=== PATIENT | male | born 1975 | race Two or more races ===

== ENCOUNTER 2024-08-10 06:30 | Day surgery (SDC) | payer MEDICAID, SELFPAY ==
--- NOTE | 2024-08-07 08:25 | EKG_ITS ---
[facility] Test Date: 2024-08-07 Pat Name: JESSICA MORRIS Department: Room: - Gender: Male Food Consultant: [facility] : 1975 Requested By: Derick Irving Order Number: [id number] Reading MD: Derick Irving Measurements Intervals [place] Rate: 74 P: 32 MA: 182 QRS: 34 QRSD: 109 T: 31 QT: 360 QTc: 401 Interpretive Statements SINUS RHYTHM No previous ECG available for comparison /store/S0/[id number]/[id number].pdf
[2024-08-07 09:32] LABS: Collection Type, Urine Clean Catch
[2024-08-07 10:49] LABS: Basophils % (Auto) 0 % (0-2.5); Eosinophils # (Auto) 0.1 Thou/mm3 (0.0-0.5); Eosinophils % (Auto) 1 % (0-10); Hematocrit 45.4 % (41.0-53.0); Hemoglobin 15.3 g/dL (13.5-16.0); Immature Granulocytes % (Auto) 0 % (0-0); Immature Granulocytes Auto 0.03 Thou/mm3 (0.00-0.00); Lymphocytes # (Auto) 2.7 Thou/mm3 (1.0-4.8); Lymphocytes % (Auto) 35 % (10-50); Mean Corpuscular HGB Conc 33.7 g/dl (31.0-37.0); Mean Corpuscular Hemoglobin 29.5 pg (25.0-35.0); Mean Corpuscular Volume 88 fL (80-100); Monocytes # (Auto) 0.6 Thou/mm3 (0.0-0.8); Monocytes % (Auto) 8 % (0-12); Neutrophils # (Auto) 4.1 Thou/mm3 (1.8-7.7); Neutrophils % (Auto) 54 % (37-80); Nucleated Red Blood Cell % 0 /100 WBC (0); Platelet Count 222 Thou/mm3 (140-440); RDW Standard Deviation 42.9 fL (35.1-43.9); Red Blood Count 5.18 Miln/mm3 (4.50-5.90); White Blood Count 7.6 Thou/mm3 (3.8-10.6)
[2024-08-07 10:55] LABS: Partial Thromboplastin Time 26.5 Seconds (22.0-36.0)
[2024-08-07 11:00] LABS: Alanine Aminotransferase 32 U/L (10-49); Albumin, Serum 4.5 gm/dL (3.5-5.0); Albumin/Globulin Ratio 1.9 (1.2-2.2); Alkaline Phosphatase 69 U/L (46-116); Anion Gap 8 (7-16); Aspartate Amino Transferase 27 U/L (0-34); BUN/Creatinine Ratio 11 Ratio (12-20); Bilirubin,Total 1.3 mg/dL (0.3-1.2); Blood Urea Nitrogen 10 mg/dL (9-23); Calcium 9.2 mg/dL (8.3-10.6); Calcium (Corrected) 9.2 mg/dL (8.5-10.1); Carbon Dioxide 30.8 mMol/L (20.0-31.0); Chloride 104 mMol/L (98-107); Creatinine (Component) 0.9 mg/dL (0.6-1.3); Globulin 2.4 gm/dL (2.3-3.5); Glucose 118 mg/dL (74-106); Osmolality,Calculated 284 (275-295); Potassium 4.5 mMol/L (3.4-5.1); Sodium 143 mMol/L (136-145); Total Protein 6.9 gm/dL (5.7-8.2); eGFR > 60 See Note
[2024-08-07 11:10] LABS: Bilirubin,Urine Negative (Negative); Blood,Urine Negative (Negative); Clarity,Urine Clear (Clear/Hazy); Color,Urine Lt-Yellow (Lt Yel-Yel); Glucose, Urine Negative (Negative); Ketones,Urine Negative (Negative); Leukocyte Esterase,Urine Negative (Negative); Nitrite,Urine Negative (Negative); PH,Urine 6.5 (5.0-7.0); Protein,Urine Negative (Neg - Trace); RBC,Urine 2 /hpf (0-3); Specific Gravity,Urine 1.021 (1.001-1.035); Squamous Epithelial Cell,Urine < 1 /hpf (0-5); Urobilinogen,Urine Negative mg/dL (0.0-1.0); WBC,Urine < 1 /hpf (0-5)
[2024-08-07 12:48] VITALS: BMI 41.8
[2024-08-10] VITALS (7 sets, daily range): BP systolic 104–138; BP diastolic 66–78; PULSE 68–89; RESP 12–19; TEMP 36.2–36.9; O2SAT 93–99; BMI 41.1
--- NOTE | 2024-08-10 07:34 | SUR.PREOP ---
Patient expressed gratitude for prayer before their procedure
--- NOTE | 2024-08-10 11:58 | ESOP_ITS ---
Date of Procedure 08/10/24 Pre Op Diagnosis Incarcerated recurrent umbilical hernia Post Op Diagnosis Same. Procedure Repair of incarcerated recurrent umbilical hernia 7 cm and partial omentectomy on 08/10/2024 Findings This patient had umbilical hernia repair done many years ago. The hernia came back and upon exploration he was found to have significant amount of scar tissue and an incarcerated umbilical hernia with omentum incarcerated in it. Required extended amount of dissection through the scar tissue in order to define the defect. Procedure Description Patient was examined in the preop area. Site and site were marked. Procedure was discussed with the patient in detail. The risk benefits alternatives were discussed with the patient and informed consent was obtained. The risks include bleeding infection recurrence of the hernia and anesthesia related risks. The patient was brought to the operating room and placed on the operating table in supine position. General anesthesia was administered in a satisfactory manner. IV antibiotics were given to the patient. Local anesthesia 0.25% Marcaine was used as an adjunct. Curvilinear vertical circumumbilical incision is made. This was deepened through the layers of skin subcutaneous tissue. The hernia sac was identified and was dissected around the umbilicus. There was significant amount of chronic collagen a scar tissue in this area. That required careful tedious dissection to identify the defect. Hernia sac was incised circumferentially, and the contents of the hernia sac were identified. There was omentum in the hernia sac, and this was adherent with the hernia sac and it is scarred down. Portion of the omentum was resected by suture ligation technique with resection of the scarred down omentum. Rest of the omentum was reduced. Hernia sac was excised as specimen. The fascia is cleaned and then the defect is defined. I examined the fascia from the peritoneal side and there are no adhesions of the bowel or omentum. The defect measured 7 cm. It came together nicely so I decided to repair that with interrupted 0 Ethibond [id number]-[id number] stitches. This repair was closed the defect longitudinally in the midline. Multiple abejbc-ik-lulrc stitches are taken to complete the repair. Hemostasis was achieved and the defect was checked again and there is no fascial defect anymore. The operative field is thoroughly irrigated with saline solution. The hernia sac toward the umbilical skin is trimmed. Umbilical skin is attached to the fascia with interrupted 3-0 Vicryl stitches so as to avoid floating umbilicus. After that subcutaneous tissue was approximated by 3-0 Vicryl and skin by four sal. Sterile dressing is applied. Abdominal binder was applied. Patient tolerated the procedure very well. Complications none. Anesthesia GETA Drains None. Implants None. Pathology / specimen Other (Hernia sac and omentum) Estimated Blood Loss 10 Condition Stable Disposition PACU Surgeon Derick Irving MD Surgical Staff Operation Date: 08/10/24 09:15 Case Staff Anesthesiologist: Pete Dorado staff nuclear medicine technologist with the student. Rosemarie RN computer engineering technician Josey ARMENDARIZ computer engineering technician
--- NOTE | 2024-08-10 12:00 | SUR.PHASEI ---
Pt. arrived to recovery via gurney with eyes closed, oral airway in place, unable to respond, VSS, with exception of 02 saturation at 86%, pt. receiving 10 liters 02 via oxymask, repositiioned pt. and prompted to wake pt. to remove airway and educate pt. to take deep breath and cough to promote 02 saturation. With intervention pt.'s 02 saturation increased to 94%. Lung sounds clear, equal expansion sean., dressing to medial abdomen, sal, telfa, 4x4, abd. pad, metaport tape and abdominal binder intact, no active bleeding noted. Report received from Dr. Dorado and Rosemarie ARMENDARIZ.
--- NOTE | 2024-08-10 12:30 | SUR.PHASEII ---
1230 Report received from Maia ARMENDARIZ
--- NOTE | 2024-08-10 12:30 | SUR.PHASEII ---
Gave report on pt. s/p surgery to Chio Clifton RN, pt. is AAOx3, no c/o pain or nausea at this time, VSS, dressing to abd. CDI. Pt. is sitting up tolerating oral fluids.
--- NOTE | 2024-08-10 12:58 | SUR.PHASEII ---
1258 Patient meets discharge criteria from recovery, awake and alert, breathing unlabored, vital signs stable, denies pain, dressing intact; no bleeding noted, drinking apple juice; denies nausea, assisted with dressing into his clothing by his , discharge instructions given to patient, his and son with the assistance of the telephone model maker plaster May ID#[id number], patients son signed discharge instructions. Patient given all his belongings prior to discharge, transported via wheelchair and left in a private vehicle.
== END 2024-08-10 12:58 | disposition home or self-care (01) ==
PROVIDERS: PCP Internal Medicine; Referring Provider Specialist; Visit Provider Specialist
PROC: (CPT 49616; principal; 2024-08-10 09:15)
DX: K42.0 Umbilical hernia with obstruction, without gangrene (principal); Z01.810 Encounter for preprocedural cardiovascular examination
CPT/HCPCS: 49616; 36415; 80053; 81001; 85025; 85730; 93005; A4217; A4649; J0131; J0690; J1100; J2250; J2405; J2704; J3010; J3490

== ENCOUNTER 2024-08-12 09:06 | Emergency (ER) | payer MEDICAID, SELFPAY ==
[2024-08-12 09:06] VITALS: BMI 40.8
--- NOTE | 2024-08-12 09:14 | EDNOTE_ITS ---
ED Abdominal Pain RME/HPI General Chief Complaint: Abdominal Pain Stated complaint: ABD PAIN S/P HERNIA REPAIR Time seen by provider: 08/12/24 09:12 Arrival date/time: 08/12/24 09:06 RME / HPI RME / HPI narrative: This section includes all my notes and documentations, including HPI, PE, and ED course.? Frantz Reyes MD HPI: 49 year old male presenting to the ED for evaluation of abdominal pain that has been gradually worsening since undergoing repair of an incarcerated recurrent umbilical hernia and partial omentectomy on 08/10/2024, performed by Dr. Irving. Pain described as an aching sensation, rating as moderate. Located diffusely but most pronounced in the periumbilical region. Accompanied by constipation, noting only a small hard bowel movement yesterday morning. Currently taking Quapaw for pain. Denies fevers, chills, chest pain, cough, shortness of breath, vomiting, or urinary symptoms. ROS: All negative except as documented in HPI. Physical Exam: General:? Alert and oriented.? No acute distress when remaining still. Eyes:? Conjunctivae and lids clear.?? ENT:? No nasal congestion.? Neck:? Supple.?? Heart:? RRR.? Lungs:? No respiratory distress.? Good air movement.? No rhonchi, wheezing, rales.?? Abdomen:? Soft, diffuse abdominal tenderness, difficult to localize. Decreased bowel sounds. No distension.? No rebound or guarding.?? Back:? No CVA tenderness.?? Skin:? Warm and dry.?? Neuro:? Alert and oriented X 3. I reviewed all diagnostic test results: My review of the CT abdomen/pelvis report is: No acute findings. Blood tests?are unremarkable. At this point, diagnoses include: Postoperative pain, constipation. Treatment here included: Zofran, Toradol, IV fluids, Dilaudid. Significant improvement noted. Recommended outpatient follow up. Based on my best medical judgment, made decision no further evaluation or treatment indicated at this time.? Patient understands and agrees to the discharge instructions customized and printed, see below. Discharge instructions from Dr. Reyes printed for you: ?After extensive evaluation, there is no emergency.? Such as infection/abscess from your surgery. -You have constipation. Quapaw causes constipation. ?Take Senokot S (not plain Senokot, OTC so prescription not needed), four pills, at bedtime as needed.? And milk of magnesia as prescribed. May take a few days but this will help clear out your bowels. ?To help current constipation and prevent future constipation, increase oral fluid because dehydration cause severe constipation.? Maintain clear urine.? If dark or yellow, increase oral fluid. ?And every day, increase fresh fruits and fresh vegetables and physical exercise. ?See your surgeon on 08/14/2024 for recheck and further care. Ask to review all test results and official radiology reports, to make sure you receive all necessary follow-ups and monitoring. ?Seek immediate medical care with worsening or with any concerns. Instrucciones de reinaldo del Dr. Reyes impresas para usted: ?Despu?s de deonna evaluaci?n exhaustiva, no se trata de ninguna emergencia. [place] deonna infecci?n o un absceso debido a la cirug?a. ?Tiene estre?imiento. Quapaw causa estre?imiento. ?[place] Senokot S (no Senokot simple, de venta mor, por lo que no necesita receta), cuatro pastillas, antes de acostarse, seg?n sea necesario. Y leche de magnesia seg?n lo prescrito. Puede tardar algunos d?as, bernabe esto le ayudar? a depurar. ?Para aliviar el estre?imiento actual y prevenirlo en el futuro, aumente la ingesta de l?quidos, ya que la deshidrataci?n puede causar estre?imiento grave. Mantenga la orina zach. Si es oscura o amarilla, aumente la ingesta de l?quidos. ?Y aumente el consumo diario de frutas y verduras frescas, y bernardino ejercicio f?sico. ?Consulte a pichardo cirujano el 14/08/2024 para deonna revisi?n y cuidados adicionales. Solicite la revisi?n de todos los resultados de las pruebas y los informes radiol?gicos oficiales para asegurarse de recibir todos los controles y monitoreos necesarios. ?Busque atenci?n m?dica inmediata si empeora o tiene alguna inquietud. Frantz Reyes MD Related Data Home Medications ?Medication ?Instructions ?Recorded ?Confirmed multivitamin (Daily Multi-Vitamin 1 tab PO QAM 5 08/10/24 tablet) Previous Rx's ?Medication ?Instructions ?Recorded hydrocodone 10 mg-acetaminophen 1 tab PO Q6H PRN pain #20 tabs 08/10/24 325 mg tablet magnesium hydroxide 2,400 mg/10 mL 30 ml PO QDAY PRN c onstipation #60 08/12/24 oral suspension (Milk Of Magnesia mL Concentrated) sennosides 8.6 mg-docusate sodium 4 tab-cap (4 x 8.6-5 0 mg) PO QDAY 08/12/24 50 mg tablet (Senokot-S) PRN constipation #20 tabs Allergies Allergy/AdvReac Type Severity Reaction Status Date / Time Penicillins Allergy Rash Verified 08/12/24 09:08 Review of Systems Review of Systems Systems Reviewed: All systems reviewed, normal except as documented Past Medical History Past Medical History GASTROINTESTINAL: Positive Gastrointestinal Disorders and Obesity Family History FAMILY HISTORY: Positive Family Cancer Social History SMOKING STATUS: Never smoker ED Exam Narrative Physical exam: As noted in HPI Course Quality Measures none Orders Category Date Time Status CT Screening NOW Care 08/12/24 09:16 Completed Saline [Insert IV] NOW Care 08/12/24 09:[address] abdomen pelvis w con Stat Exams 08/12/24 09:16 Completed Amylase Stat Lab 08/12/24 09:25 Completed Bilirubin,Direct Stat Lab 08/12/24 09:25 Completed Blood Culture (Lab) Stat Lab 08/12/24 09:36 Received CBC Stat Lab 08/12/24 09:25 Completed CMP [Comprehensive Metabolic Panel] Stat Lab 08/12/24 09:25 Completed CRP [C-Reactive Protein] Stat Lab 08/12/24 09:25 Completed ESR [Sed Rate (ESR)] Stat Lab 08/12/24 09:25 Completed Lactate (Lactic Acid) Stat Lab 08/12/24 09:25 Completed Lipase Stat Lab 08/12/24 09:25 Completed Magnesium Stat Lab 08/12/24 09:25 Completed PT [Prothrombin Time with INR] Stat Lab 08/12/24 09:25 Completed PTT [Partial Thromboplastin Time] Stat Lab 08/12/24 09:25 Completed Procalcitonin Stat Lab 08/12/24 09:25 Completed HYDROmorphone INJ [Dilaudid Inj] Med 08/12/24 09:15 Discontinued 1 mg IVP X1 ONE Ketorolac Inj [Toradol Inj] Med 08/12/24 09:15 Discontinued 30 mg IVP X1 ONE Ondansetron Inj [Zofran Inj] Med 08/12/24 09:15 Discontinued 4 mg IVP X1 ONE Sodium Chloride 0.9% 1000 ml [Ns] 1,000 ml Med 08/12/24 09:15 Discontinued IV 999 mls/hr Vital Signs Vital signs: Vital Signs Temperature 98.1 F 08/12/24 09:18 Pulse Rate 69 08/12/24 09:18 Respiratory Rate 19 08/12/24 09:18 Blood Pressure 148/98 H 08/12/24 09:18 Pulse Oximetry (%) 96 08/12/24 09:18 Oxygen Delivery Method Room Air 08/12/24 09:18 Pulse ox is 96% on room air which is adequate. Abdominal Pain MDM MDM Narrative MDM Narrative:: Yomaira Herron am scribing for and in the presence of Dr. Reyes. 49 year old male presenting to the ED for evaluation of abdominal pain that has been gradually worsening since undergoing repair of an incarcerated recurrent um bilical hernia and partial omentectomy on 08/10/2024, performed by Dr. Irving. Pain described as an aching sensation, rating as moderate. Located diffusely but most pronounced in the periumbilical region. Accompanied by constipation, noting only a small hard bowel movement yesterday morning. Currently taking Quapaw for pain. Denies fevers, chills, chest pain, cough, shortness of breath, vomiting, or urinary symptoms. Patient data External records reviewed:: [facility] previous records (I reviewed operative report from 08/10/2024 ) Clinical information provided by:: patient Social determinants that could affect healthcare access:: none Patient has the following chronic illnesses:: repair of an incarcerated recurrent umbilical hernia and partial omentectomy on 08/10/2024, performed by Dr. Irving How is presenting disease/condition affected by chronic disease/condition?: exacerbated by Evaluation data The following diagnostics were reviewed and interpreted by me:: lab results and radiology exam(s) Lab and/or radiology exams considered but not ordered:: None Interpretation Summary: I reviewed all diagnostic test results: My review of the CT abdomen/pelvis report is: No umbilical abscess or definite hematoma. Blood tests?are unremarkable. Medications / Prescriptions Medications or Prescriptions considered but not ordered:: None Medication administrations:: Medication Administration History Discontinued Medications Hydromorphone HCl (Hydromorphone Inj 2 Mg/Ml Vial) 1 mg IVP X1 ONE Stop: 08/12/24 09:16 Last Admin: 08/12/24 09:29 Dose: 1 mg Documented By: TRACEY Sodium Chloride (Ns) 1,000 mls @ 999 mls/hr IV .Q1H1M ONE Stop: 08/12/24 10:15 Last Infusion: 08/12/24 10:34 Dose: Infused Documented By: Admin: 08/12/24 09:26 Dose: 999 mls/hr Documented By: VG Ketorolac Tromethamine (Ketorolac Inj 30 Mg/Ml Vial) 30 mg IVP X1 ONE Stop: 08/12/24 09:16 Last Admin: 08/12/24 09:28 Dose: 30 mg Documented By: VG Ondansetron HCl (Ondansetron Inj 2 Mg/Ml Inj 2 Ml) 4 mg IVP X1 ONE; Protocol Stop: 08/12/24 09:16 Last Admin: 08/12/24 09:27 Dose: 4 mg Documented By: VG IV fluid and Toradol and Dilaudid and Zofran. Consultations Consultation(s) initiated? (list below): No Diagnosis Differential diagnosis abdominal pain: abdominal pain, acute appendicitis, calculus of kidney, constipation, diverticulitis, pancreatitis, small bowel obstruction and other (post operative pain) Most likely diagnosis given after review of the tests above:: Postoperative pain and constipation. Admission Indicated Admission indicated?: not indicated Explain why admission is indicated or not indicated:: With significant improvement, there was no indication for admission. Admission Request Was there a request for admission?: No Disposition Plan Disposition Plan: Discharge Discharge Attestation Discharge Attestation: The patient and all family members were given an opportunity to ask questions and understood the discharge instructions. Discharge instructions specifically effects, indications for sooner follow up or return to the emergency department, and the expected course of current diagnosis. Patient condition: Stable Discharge Plan Plan Patient Disposition: HOME (Self Care) Prescriptions/Referrals Prescriptions/Med Rec: New magnesium hydroxide [Milk Of Magnesia Concentrated] 2,400 mg/10 mL suspension 30 ml PO QDAY PRN (Reason: constipation) Qty: 60 0RF sennosides-docusate sodium [Senokot-S] 8.6-50 mg tablet 4 tab-cap PO QDAY PRN (Reason: constipation) Qty: 20 0RF No Action multivitamin [Daily Multi-Vitamin] Tablet 1 tab PO QAM hydrocodone-acetaminophen 10-325 mg tablet 1 tab PO Q6H MDD 4 PRN (Reason: pain) Qty: 20 0RF Referrals: Jermain Key MD [Primary Care Provider] - In 1 week Problem List Clinical Impression: Postoperative pain, Constipation Patient/Caregiver Discharge Instructions Discharge Activity: activity as tolerated Education Materials: ED Constipation (Adult) Additional Instructions: Discharge instructions from Dr. Reyes printed for you: ?After extensive evaluation, there is no emergency.? Such as infection/abscess from your surgery. -You have constipation. Quapaw causes constipation. ?Take Senokot S (not plain Senokot, OTC so prescription not needed), four pills, at bedtime as needed.? And milk of magnesia as prescribed. May take a few days but this will help clear out your bowels. ?To help current constipation and prevent future constipation, increase oral fluid because dehydration cause severe constipation.? Maintain clear urine.? If dark or yellow, increase oral fluid. ?And every day, increase fresh fruits and fresh vegetables and physical exercise. ?See your surgeon on 08/14/2024 for recheck and further care. Ask to review all test results and official radiology reports, to make sure you receive all necessary follow-ups and monitoring. ?Seek immediate medical care with worsening or with any concerns. Instrucciones de reinaldo del Dr. Reyes impresas para usted: ?Despu?s de deonna evaluaci?n exhaustiva, no se trata de ninguna emergencia. [place] deonna infecci?n o un absceso debido a la cirug?a. ?Tiene estre?imiento. Quap[place] causa estre?imiento. ?[place] Senokot S (no Senokot simple, de venta mor, por lo que no necesita receta), cuatro pastillas, antes de acostarse, seg?n sea necesario. Y leche de m agnesia seg?n lo prescrito. Puede tardar algunos d?as, bernabe esto le ayudar? a depurar. ?Para aliviar el estre?imiento actual y prevenirlo en el futuro, aumente la ingesta de l?quidos, ya que la deshidrataci?n puede causar estre?imiento grave. Mantenga la orina zach. Si es oscura o amarilla, aumente la ingesta de l?quidos. ?Y aumente el consumo diario de frutas y verduras frescas, y bernardino ejercicio f?sico. ?Consulte a pichardo cirujano el 14/08/2024 para deonna revisi?n y cuidados adicionales. Solicite la revisi?n de todos los resultados de las pruebas y los informes radiol?gicos oficiales para asegurarse de recibir todos los controles y monitoreos necesarios. ?Busque atenci?n m?dica inmediata si empeora o tiene alguna inquietud. Print Language: Citizen Of [place] Stand Alone Forms: [employer]aja Award Info., Patient Portal Info Letter
--- NOTE | 2024-08-12 09:16 | XR_ITS ---
Examination: CT abdomen with intravenous contrast CT pelvis with intravenous contrast 2-D coronal reconstructions 2-D sagittal reconstructions Date and time of exam:August 12, 2024 1028 hours INDICATIONS: Abdominal pain post umbilical hernia repair 2 days ago. CTDI: vol (mGy) 13.8 DLP: (mGycm) 995 Technique: Multiple axial sections of the abdomen and pelvis have been obtained. 64 slice high-resolution scanner used. 3 mm axial sections have been obtained, post intravenous injection 60 cc [id number] 2-D sagittal, coronal reconstructions obtained. Low dose protocols were performed. One or more of the following dose reduction techniques were used; automated exposure control, adjustment of the mA and/or KV according to patient size, use of iterative reconstruction technique. Findings: No focal liver or splenic lesions No gallstones No pancreatic or adrenal mass No renal or ureteral calculi, no hydronephrosis Aorta normal size Thickening at the umbilical tract, no abscess or hematoma No pericecal inflammatory change No abdominal or pelvic hematoma Transverse prostate dimension 4.3 cm IMPRESSION: Postoperative change at the umbilicus with minor thickening of the umbilical tract No umbilical abscess or definite hematoma
[2024-08-12 09:18] VITALS: BP 148/98; PULSE 69; RESP 19; TEMP 36.7; O2SAT 96
[2024-08-12] MEDS: SODIUM CHLORIDE 0.9% 1000 ML 1,000 ML 999 ML IV (09:26)
[2024-08-12] MEDS: ONDANSETRON INJ 2 MG/ML INJ 2 ML 4 MG IVP (09:27)
[2024-08-12] MEDS: KETOROLAC INJ 30 MG/ML VIAL IVP (09:28)
[2024-08-12] MEDS: HYDROmorphone INJ 2 MG/ML VIAL 1 MG IVP (09:29)
[2024-08-12 09:39] LABS: Lactate (Lactic Acid) 1.5 mMol/L (0.4-2.0)
[2024-08-12 09:45] LABS: Basophils % (Auto) 0 % (0-2.5); Eosinophils # (Auto) 0.1 Thou/mm3 (0.0-0.5); Eosinophils % (Auto) 1 % (0-10); Hematocrit 44.6 % (41.0-53.0); Hemoglobin 15.1 g/dL (13.5-16.0); Immature Granulocytes % (Auto) 0 % (0-0); Immature Granulocytes Auto 0.04 Thou/mm3 (0.00-0.00); Lymphocytes # (Auto) 4.2 Thou/mm3 (1.0-4.8); Lymphocytes % (Auto) 39 % (10-50); Mean Corpuscular HGB Conc 33.9 g/dl (31.0-37.0); Mean Corpuscular Hemoglobin 29.4 pg (25.0-35.0); Mean Corpuscular Volume 87 fL (80-100); Monocytes # (Auto) 0.7 Thou/mm3 (0.0-0.8); Monocytes % (Auto) 7 % (0-12); Neutrophils # (Auto) 5.8 Thou/mm3 (1.8-7.7); Neutrophils % (Auto) 53 % (37-80); Nucleated Red Blood Cell % 0 /100 WBC (0); Platelet Count 245 Thou/mm3 (140-440); RDW Standard Deviation 42.2 fL (35.1-43.9); Red Blood Count 5.13 Miln/mm3 (4.50-5.90); White Blood Count 10.9 Thou/mm3 (3.8-10.6)
[2024-08-12 10:06] LABS: Alanine Aminotransferase 28 U/L (10-49); Albumin, Serum 4.2 gm/dL (3.5-5.0); Alkaline Phosphatase 64 U/L (46-116); Amylase 72 U/L (30-118); Anion Gap 6 (7-16); Aspartate Amino Transferase 18 U/L (0-34); BUN/Creatinine Ratio 10 Ratio (12-20); Bilirubin,Direct 0.2 mg/dL (0.0-0.3); Bilirubin,Total 0.9 mg/dL (0.3-1.2); Blood Urea Nitrogen 10 mg/dL (9-23); C-Reactive Protein < 0.5 mg/dL (0.0-0.9); Calcium 8.9 mg/dL (8.3-10.6); Calcium (Corrected) 8.9 mg/dL (8.5-10.1); Carbon Dioxide 31.2 mMol/L (20.0-31.0); Chloride 104 mMol/L (98-107); Estimated Creatinine Clearance 107.6 mL/min (>60); Globulin 2.1 gm/dL (2.3-3.5); Glucose 101 mg/dL (74-106); Lipase 38 U/L (12-53); Magnesium 1.7 mg/dL (1.6-2.6); Osmolality,Calculated 280 (275-295); Potassium 4.6 mMol/L (3.4-5.1); Procalcitonin 0.04 ng/ml (0.0-0.49); Sodium 141 mMol/L (136-145); Total Protein 6.3 gm/dL (5.7-8.2); eGFR > 60 See Note
[2024-08-12 10:35] LABS: Sed Rate (ESR) 13 mm/hr (0-20)
[2024-08-12 10:43] LABS: Partial Thromboplastin Time 24.5 Seconds (22.0-36.0); Prothrombin Time 10.8 Seconds (9.0-12.2)
[2024-08-12 11:00] VITALS: BP 129/82; PULSE 68; RESP 15; TEMP 36.8; O2SAT 96
[2024-08-12 11:21] VITALS: BP 129/82; PULSE 73; RESP 16; TEMP 36.6; O2SAT 95
== END 2024-08-12 11:22 | disposition home or self-care (01) ==
PROVIDERS: Emergency Provider Emergency Medicine; PCP Family Medicine
DX: G89.18 Other acute postprocedural pain (principal); K59.00 Constipation, unspecified
CPT/HCPCS: 36415; 74177; 80053; 82150; 82248; 83605; 83690; 83735; 84145; 85025; 85610; 85652; 85730; 86140; 87040; 96361; 96374; 96375; 99285; A4649; J1171; J1885; J2405; J7030; Q9967